=== PATIENT | male | born 1975 | race Caucasian/White ===

== ENCOUNTER 2020-12-16 09:32 | Emergency (ER) | payer OTHER ==
--- NOTE | 2020-12-16 16:16 | EKG ---
[facility] [address] [facility] [place], [place] [address] Signed Normal sinus rhythm with sinus arrhythmia Normal ECG No previous ECGs available Confirmed by KOBI SUMMERS MD ([id number]) on 12/16/2020 4:16:05 PM Electronically Signed By: KOBI SUMMERS MD 12/16/20 1616 PATIENT NAME: MIKE BANDA Electrocardiogram DATE OF : 79 PHYSICIAN: KOBI SUMMERS MD REPORT #: [id number] REPORT IS CONFIDENTIAL AND NOT TO BE RELEASED WITHOUT AUTHORIZATION
== END 2020-12-16 12:38 | disposition home or self-care (01) ==
LOC: ED 09:32
DX: R55 Syncope and collapse (principal); R41.3 Other amnesia; W01.10XA Fall on same level from slipping, tripping and stumbling with subsequent striking against unspecified object, initial encounter
CPT/HCPCS: 70450; 71045; 80053; 81001; 84484; 85007; 85025; 85651; 93005; 93010; 96374; 99285-25; J2405